=== PATIENT | male | born 1965 | race Caucasian/White ===

== ENCOUNTER 2017-10-06 11:54 | Day surgery (SDC) | payer BC ==
[~2017-10-06] VITALS: Ht 177.8 cm; Wt 113.0 kg
[~2017-10-06 11:54] MED LIST: AMIODARONE HCL200 MG PO; CARDIZEM CD180 MG PO; CARDIZEM CD240 MG PO; CARDIZEM60 MG PO; DIAZEPAM10 MG PO; FLECAINIDE ACE100 MG PO; FLONASE16 G1 BOTH NARES; OXAYDO7.5 MG PO; OXYCODONE-APAP1 EACH PO; XARELTO15 MG PO; XARELTO20 MG PO; ZYRTEC10 M2 PO
== END 2017-10-06 14:55 | disposition home or self-care (01) ==
LOC: CATH 11:54
DX: I48.2 Chronic atrial fibrillation (principal); I48.92 Unspecified atrial flutter; R53.82 Chronic fatigue, unspecified; Z79.01 Long term (current) use of anticoagulants
CPT/HCPCS: 93005; 93312; J2250; J3010